=== PATIENT | female | born 1930 | race Caucasian/White ===

== ENCOUNTER 2016-04-24 17:33 | Emergency (ER) | payer OTHER, BC ==
[~2016-04-24] VITALS: Ht 149.9 cm; Wt 58.0 kg
[~2016-04-24 17:33] MED LIST: ASPCH81; CLOP1TAB15 PO; EST1 PO; HYDC25 PO; LEVO-217; METO50TA7 PO; PRLSR20
[2016-04-24 17:38] VITALS: TEMP 36.4; Ht 149.9 cm; Wt 58.0 kg
[2016-04-24] MEDS ORDERED: SODIUM CHLORIDE 0.9% 1000ML 1,000 ML IV STA (18:01)
[2016-04-24] MEDS ORDERED: ONDANSETRON INJ 2 MG/ML 2 ML VIAL IV STA (18:01)
[2016-04-24] MEDS ORDERED: OPTIRAY 320 IV PRN (18:15)
[2016-04-24] MEDS ORDERED: SYN50 PO (18:18)
[2016-04-24] MEDS ORDERED: METO50TA16 PO (18:18)
[2016-04-24 18:43] LABS: BASO % 0.3 %; BASO ABS # 0.02 K/uL (0-0.2); COMPLETE YES; HEMATOCRIT 37.1 % (37-47); IG% 0.1 %; LYMPH % 11.4 %; LYMPH ABS # 0.81 K/uL (1.2-3.4); MEAN CELL VOLUME 86.5 fL (80-100); MEAN CORPUSCULAR HEMOGLOBIN 30.1 pg (25-34); MEAN CORPUSCULAR HGB CONC 34.8 g/dl (32-36); MEAN PLATELET VOLUME 9.6 fL (7.4-10.4); MONO % 1.8 %; NEUT % 86.4 %; PLATELET COUNT 256 K/uL (130-400); RED BLOOD COUNT 4.29 M/uL (4.2-5.4)
[2016-04-24 19:01] LABS: ALT/SGPT 24 U/L (12-78); AST/SGOT 18 U/L (15-37); BLOOD UREA NITROGEN 22 mg/dl (7-18); BUN/CREATININE RATIO 28.9 (10-20); CALCIUM 9.7 mg/dl (8.5-10.1); CARBON DIOXIDE 29 mmol/L (21-32); CHLORIDE 106 mmol/L (98-107); CREATININE 0.75 mg/dl (0.60-1.20); GLUCOSE 137 mg/dl (70-99); POTASSIUM 3.7 mmol/L (3.5-5.1); SODIUM 143 mmol/L (136-145)
[2016-04-24 19:04] LABS: ALKALINE PHOSPHATASE 60 U/L (45-117)
--- NOTE | 2016-04-24 20:07 | DIAGNOSTIC IMAGING REPORT ---
CT SCAN OF THE ABDOMEN AND PELVIS WITH IV CONTRAST CLINICAL HISTORY: Vomiting. COMPARISON STUDY: Abdominal ultrasound dated 03/26/2006. TECHNIQUE: Following the IV administration of 93 cc of Optiray 320, CT scan of the abdomen and pelvis is performed from the lung bases to the proximal femora. Images are reviewed in the axial, sagittal, and coronal planes. IV contrast was administered without complication. Automated dose control exposure was utilized. CT DOSE: 270.46 mGy.cm FINDINGS: Lung bases: The heart is enlarged and without pericardial effusion. The coronary arteries are calcified. Evaluation of the lung bases is degraded by marked ring motion artifact. Minimal scarring is noted in the right middle lobe. No airspace consolidation or pleural effusion is seen. A fat-containing Bochdalek hernia is seen at the right lung base. A tiny hiatal hernia is identified. Liver: The contrast-enhanced liver is normal in size, contour, and attenuation. There is no intrahepatic biliary ductal dilatation. The hepatic veins and portal veins are patent. Gallbladder: Unremarkable. Spleen: Normal in size and attenuation. Pancreas: The pancreas is atrophic. 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 Adrenal glands: Unremarkable. Kidneys: The contrast enhanced kidneys demonstrate cortical atrophy and are without hydronephrosis. The kidneys enhance symmetrically. A 1.3 cm cyst is noted in the left upper pole. Additional scattered subcentimeter cortical hypodensities also likely represents cysts but are too small for definitive characterization. Abdominal vasculature: The abdominal aorta is normal in course and caliber noting moderate to advanced atherosclerotic calcification. Bowel: The small bowel and colon are normal in course and caliber. There is moderate to advanced sigmoid diverticulosis without CT evidence of acute diverticulitis. The appendix is well-visualized and normal. Peritoneum: There is no intraperitoneal free air or abdominal ascites. Lymphadenopathy: None. Pelvic viscera: The bladder is normal as visualized. There are calcified uterine fibroids. The endometrial stripe appears thickened and heterogeneous for age, measuring up to 12 mm. There is a 1.7 cm simple appearing cystic structure identified in the left ovary on image #259. A vaginal pessary is in place. Numerous calcified phleboliths are present in the pelvis. Skeletal structures: The skeletal structures are osteopenic. There is lumbosacral spondylosis and scoliosis. No lytic or blastic lesions are seen. IMPRESSION: 1. There are no acute infectious or inflammatory findings in the abdomen or pelvis. 2. The endometrial stripe appears thickened for age measuring up to 1.2 cm. Follow-up with a nonemergent pelvic ultrasound and gynecology assessment is recommended to exclude underlying endometrial lesion. 3. Fibroid uterus. 4. Moderate to advanced sigmoid diverticulosis without CT evidence of acute diverticulitis. 5. Cardiomegaly. 6. Additional findings as above. Electronically signed by: Erasto Howe M.D. 04/24/2016 8:05 PM Dictated Date/Time: 04/24/2016 7:59 PM
[2016-04-24] MEDS ORDERED: ONDA4TAB46 PO (20:38)
[2016-04-24] MEDS ORDERED: ONDANSETRON HOME PACK 4MG OD TAB PO ONE (20:45)
[2016-04-24 21:16] VITALS: BP 137/85; PULSE 65; O2SAT 95
--- NOTE | 2016-04-25 01:24 | EMERGENCY ROOM VISIT NOTE ---
History Report prepared by Jaswant: Zbigniew Porter Under the Supervision of: Dr. Gilson Nieves D.O. First contact with patient: 17:45 Chief Complaint: VOMITING Stated Complaint: FLU LIKE SYMPTOMS History of Present Illness The patient is an 85 year old female who presents to the Emergency Room with complaints of persistent gagging beginning several hours prior to arrival. She associates intermittent nausea and decreased appetite with today' symptoms. The patient notes her gagging began this morning, and she has been able to keep down some sips of water. She denies vomiting, but notes she produce yellow and green mucus when gagging. The patient notes she was seen at [facility] early today and was referred to the ED for dehydration. She states her last normal bowel movement was yesterday. The patient notes she takes Metoprol and is no longer on Plavix. She denies a history of abdominal surgeries. The patient does note she has two heart stents. Pt denies headache, change in vision, fevers, chest pain, shortness of breath, abdominal pain, vomiting, diarrhea, pain with urination, and melena. 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 Review of Systems See HPI for pertinent positives & negatives. A total of 10 systems reviewed and were otherwise negative. Past Medical & Surgical Surgical Problems: (1) H/O heart artery stent Family History Patient reports no known family medical history. Social History Smoking Status: Never Smoker Marital Status: Occupation Status: retired Current/Historical Medications Scheduled Aspirin (Aspirin Tab-Chewable *), DAILY Hydrochlorothiazide (Hctz *), 25 MG PO DAILY Levothyroxine Sodium (Synthroid), 50 MCG PO DAILY Metoprolol Tartrate (Lopressor) (Lopressor), 50 MG PO BID Scheduled PRN Ondansetron Hcl (Zofran), 4 MG PO TID PRN for Nausea Allergies Coded Allergies: Penicillins (Unverified Allergy, Unknown, 04/24/16) Prednisone (Unverified Allergy, Unknown, HIVES, 04/24/16) Sulfamethoxazole w/Trimethoprim (Unverified Allergy, Unknown, HIVES, ) Uncoded Allergies: SIMBRINZA (Allergy, Severe, EYE SWELLING, 04/24/16) pcn (Allergy, Unknown, 07/31/04) Physical Exam Vital Signs Date Time Temp Pulse Resp B/P Pulse Ox O2 Delivery O2 Flow Rate FiO2 04/24/16 21:16 65 20 137/85 95 04/24/16 19:45 65 20 145/72 97 Room Air 04/24/16 17:38 36.4 68 20 180/82 97 Room Air Physical Exam GENERAL: laying in bed, disheveled, non-toxic. EYE EXAM: normal conjunctiva, PERRL and EOM's intact OROPHARYNX: no exudate, no erythema, lips, buccal mucosa, and tongue normal and mucous membranes are moist NECK: supple, no nuchal rigidity, no adenopathy, non-tender LUNGS: Clear to auscultation. Normal chest wall mechanics HEART: no murmurs, S1 normal and S2 normal ABDOMEN: abdomen soft, non-tender, normo-active bowel sounds, no masses, no rebound or guarding. BACK: Back is symmetrical on inspection and there is no deformity, no midline tenderness, no CVA tenderness. SKIN: no rashes and no bruising UPPER EXTREMITIES: upper extremities are grossly normal. LOWER EXTREMITIES: No pitting edema. Calves equal bilaterally. NEURO EXAM: Normal sensorium, cranial nerves II-XII intact, normal speech, no weakness of arms, no weakness of legs. No drift. Finger to nose intact. Gross sensation intact. Medical Decision & Procedures ER Provider Diagnostic Interpretation: CT:Per my review, radiologist interpretation. CT SCAN OF THE ABDOMEN AND PELVIS WITH IV CONTRAST CLINICAL HISTORY: Vomiting. COMPARISON STUDY: Abdominal ultrasound dated 03/26/2006. TECHNIQUE: Following the IV administration of 93 cc of Optiray 320, CT scan of the abdomen and pelvis is performed from the lung bases to the proximal femora. Images are reviewed in the axial, sagittal, and coronal planes. IV contrast was administered without complication. Automated dose control exposure was utilized. CT DOSE: 270.46 mGy.cm FINDINGS: Lung bases: The heart is enlarged and without pericardial effusion. The coronary arteries are calcified. Evaluation of the lung bases is degraded by marked ring motion artifact. Minimal scarring is noted in the right middle lobe. No airspace consolidation or pleural effusion is seen. A fat-containing Bochdalek hernia is seen at the right lung base. A tiny hiatal hernia is identified. Liver: The contrast-enhanced liver is normal in size, contour, and attenuation. There is no intrahepatic biliary ductal dilatation. The hepatic veins and portal veins are patent. Gallbladder: Unremarkable. Spleen: Normal in size and attenuation. Pancreas: The pancreas is atrophic. 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 Adrenal glands: Unremarkable. Kidneys: The contrast enhanced kidneys demonstrate cortical atrophy and are without hydronephrosis. The kidneys enhance symmetrically. A 1.3 cm cyst is noted in the left upper pole. Additional scattered subcentimeter cortical hypodensities also likely represents cysts but are too small for definitive characterization. Abdominal vasculature: The abdominal aorta is normal in course and caliber noting moderate to advanced atherosclerotic calcification. Bowel: The small bowel and colon are normal in course and caliber. There is moderate to advanced sigmoid diverticulosis without CT evidence of acute diverticulitis. The appendix is well-visualized and normal. Peritoneum: There is no intraperitoneal free air or abdominal ascites. Lymphadenopathy: None. Pelvic viscera: The bladder is normal as visualized. There are calcified uterine fibroids. The endometrial stripe appears thickened and heterogeneous for age, measuring up to 12 mm. There is a 1.7 cm simple appearing cystic structure identified in the left ovary on image #259. A vaginal pessary is in place. Numerous calcified phleboliths are present in the pelvis. Skeletal structures: The skeletal structures are osteopenic. There is lumbosacral spondylosis and scoliosis. No lytic or blastic lesions are seen. IMPRESSION: 1. There are no acute infectious or inflammatory findings in the abdomen or pelvis. 2. The endometrial stripe appears thickened for age measuring up to 1.2 cm. Follow-up with a nonemergent pelvic ultrasound and gynecology assessment is recommended to exclude underlying endometrial lesion. 3. Fibroid uterus. 4. Moderate to advanced sigmoid diverticulosis without CT evidence of acute diverticulitis. 5. Cardiomegaly. 6. Additional findings as above. Electronically signed by: Erasto Howe M.D. 04/24/2016 8:05 PM Laboratory Results 04/24/16 18:20 Red Blood Count 4.29, Mean Corpuscular Volume 86.5, Mean Corpuscular Hemoglobin 30.1, Mean Corpuscular Hemoglobin Concent 34.8, Mean Platelet Volume 9.6, Neutrophils (%) (Auto) 86.4, Lymphocytes (%) (Auto) 11.4, Monocytes (%) (Auto) 1.8, Eosinophils (%) (Auto) 0.0, Basophils (%) (Auto) 0.3, Neutrophils # (Auto) 6.13, Lymphocytes # (Auto) 0.81, Monocytes # (Auto) 0.13, Eosinophils # (Auto) 0.00, Basophils # (Auto) 0.02 04/24/16 18:20 Test 04/24/16 18:20 White Blood Count 7.10 K/uL (4.8-10.8) Red Blood Count 4.29 M/uL (4.2-5.4) Hemoglobin 12.9 g/dL (12.0-16.0) Hematocrit 37.1 % (37-47) Mean Corpuscular Volume 86.5 fL (80-100) Mean Corpuscular Hemoglobin 30.1 pg (25-34) Mean Corpuscular Hemoglobin Concent 34.8 g/dl (32-36) Platelet Count 256 K/uL (130-400) Mean Platelet Volume 9.6 fL (7.4-10.4) Neutrophils (%) (Auto) 86.4 % Lymphocytes (%) (Auto) 11.4 % Monocytes (%) (Auto) 1.8 % Eosinophils (%) (Auto) 0.0 % Basophils (%) (Auto) 0.3 % Neutrophils # (Auto) 6.13 K/uL (1.4-6.5) Lymphocytes # (Auto) 0.81 K/uL (1.2-3.4) Monocytes # (Auto) 0.13 K/uL (0.11-0.59) Eosinophils # (Auto) 0.00 K/uL (0-0.5) Basophils # (Auto) 0.02 K/uL (0-0.2) RDW Standard Deviation 44.1 fL (36.4-46.3) RDW Coefficient of Variation 14.1 % (11.5-14.5) Immature Granulocyte % (Auto) 0.1 % Immature Granulocyte # (Auto) 0.01 K/uL (0.00-0.02) Anion Gap 8.0 mmol/L (3-11) Est Creatinine Clear Calc Drug Dose 42.5 ml/min Estimated GFR () 84.2 Estimated GFR (Non- 72.7 BUN/Creatinine Ratio 28.9 (10-20) Calcium Level 9.7 mg/dl (8.5-10.1) Total Bilirubin 0.3 mg/dl (0.2-1) Direct Bilirubin < 0.1 mg/dl (0-0.2) Aspartate Amino Transf (AST/SGOT) 18 U/L (15-37) Alanine Aminotransferase (ALT/SGPT) 24 U/L (12-78) Alkaline Phosphatase 60 U/L (45-117) Total Protein 7.6 gm/dl (6.4-8.2) Albumin 3.8 gm/dl (3.4-5.0) Lipase 112 U/L (73-393) Laboratory results per my review. Medications Administered Medications (Trade) Dose Ordered Sig/Vickie Route Start Time Stop Time Status Last Admin Dose Admin Sodium Chloride (Nss 1000ml) 1,000 ml @ 999 mls/hr Q1H1M STAT IV 04/24/16 18:01 04/24/16 19:01 DC 04/24/16 18:27 999 MLS/HR Ondansetron HCl (Zofran Inj) 4 mg NOW STAT IV 04/24/16 18:01 04/24/16 18:02 DC 04/24/16 18:26 4 MG Ondansetron HCl (ZOFRAN ODT 4MG Home Pack) 1 homepack UD ONCE PO 04/24/16 20:45 04/24/16 20:46 DC 04/24/16 20:45 1 HOMEPACK ED Course ED COURSE: Vital signs were reviewed and showed hypertension. The patients medical record was reviewed The above diagnostic studies were performed and reviewed. ED treatments and interventions as stated above. 1750: The patient was evaluated in room C2B. A complete history and physical examination was performed. 1800: Ordered Zofran Inj 4 mg IV, Sodium Chloride 1,000 ml @ 999 mls/hr IV. 1829: Reevaluated the patient at this time, and she is doing well. 2029: Reevaluated the patient at this time, and she cannot provide a urine and would like to go home. The patient is not vomiting, and she is feeling better. 2044: Ordered Ondansetron HCl 1 homepack PO. 2046: Upon reevaluation, the patient is doing well.I discussed my findings with the patient and she understands and agrees with the treatment plan. Based on the patients age, coexisting illnesses, exam and lab findings the decision to treat as an outpatient was made. The patient remained stable while under my care. The patient appeared well at the time of discharge. Medical Decision Differential diagnoses includes but is not limited to gastritis, peptic ulcer disease, GERD, gallbladder disease, pancreatitis, small bowel obstruction, acute coronary syndrome, pericarditis, ischemic bowel, irritable bowel disease, irritable bowel syndrome, appendicitis, diverticulitis, malignancy, hernia, urinary tract infection, torsion, perforation, trauma, infectious. Patient is an 85-year-old female who presents the ER for persistent gagging which started earlier today. She denies any vomiting but does admit to nausea. No real abdominal pain. No fevers. Her abdominal exam is benign. Labs were unremarkable. CT of her abdomen pelvis shows thickening of her endometrial stripe. She was unable to give a UA and declined requesting to be discharged. Patient and daughter were updated at bedside. She is given IV Zofran and fluids following which she felt significantly better. She had no more dry heaving. CT is above. She is discharged follow-up with gynecology and Her Primary Care Doctor. She Was Given Zofran upon Discharge. Discussed with Pt concerning signs and symptoms to watch out for. Pt was instructed to follow up with their PCP and discussed with the patient their option to return to the ED at anytime for persistent or worsening symptoms. The appropriate anticipatory guidance and out-patient management, including indications for return to the emergency department, were explained at length to the patient and understood. Impression Primary Impression: Vomiting Scribe Attestation The scribe's documentation has been prepared under my direction and personally reviewed by me in its entirety. I confirm that the note above accurately reflects all work, treatment, procedures, and medical decision making performed by me. Departure Information Dispostion Home / Self-Care Prescriptions Ondansetron Hcl (ZOFRAN) 4 Mg Tab 4 MG PO TID Y for Nausea, #20 TAB Prov: Gilson Nieves, 04/24/16 Referrals Carole Villa M.D. (PCP) Forms HOME CARE DOCUMENTATION FORM, IMPORTANT VISIT INFORMATION Patient Instructions My [facility], Vomiting - [facility] Additional Instructions Please follow up with your primary care doctor with in the next 24 hours. Any worsening of your symptoms, please return to the ED immediately. This includes any persistent vomiting or diarrhea, dizziness, passing out, chest pain, shortness breath, bright red blood in her stool, or any other concerning signs or symptoms from your standpoint. CT of the abdomen and pelvis is unremarkable with the exception of mild thickening of your endometrial stripe. Please follow-up with gynecology in regards to this within the next 1 month. Please take Zofran as prescribed for nausea/vomiting. Problem Qualifiers Primary Impression: Vomiting Vomiting type: unspecified Vomiting Intractability: non-intractable Nausea presence: with nausea Qualified Codes: R11.2 - Nausea with vomiting, unspecified
== END 2016-04-24 21:18 | disposition home or self-care (01) ==
LOC: C.EDB 17:35 → C.EDC 21:18
DX: R11.10 Vomiting, unspecified (principal); Z98.61 Coronary angioplasty status; Z79.82 Long term (current) use of aspirin; Z79.899 Other long term (current) drug therapy; Z88.0 Allergy status to penicillin; Z88.2 Allergy status to sulfonamides; Z88.8 Allergy status to other drugs, medicaments and biological substances